=== PATIENT | female | born 1995 | race Asian ===

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

== ENCOUNTER 2017-07-27 00:22 | Emergency (ER) | payer OTHER ==
[2017-07-27] MEDS ORDERED: Pseudoephedrine TAB* 30 MG PO ONE (04:47)
--- NOTE | 2017-07-27 04:53 | ED ---
Alfreda Ferrara Julia, scribed for Andrea Pratt MD on 07/27/17 at 0100 . Substance Abuse/Use - HPI Summary HPI Summary: This patient is a 21 year old F BIBA to [facility] due to etoh intoxication from 6 shots of vodka around 20:00. Pt reports nasal congestion and eczema outbreak. She denies abdominal pain, nausea, trauma, or use of other medications/ substances. Patient repeats I just have to poop. Her LNMP was a couple days ago. - History Of Current Complaint Chief Complaint: EDSubstanceAbuse Stated Complaint: ETOH Time Seen by Provider: 07/27/17 00:37 Hx Obtained From: Patient Onset/Duration of Drug/ETOH Abuse: Hours Overdose Characteristics: Oral PMH/Surg Hx/FS Hx/Imm Hx Musculoskeletal History: Reports: Other Musculoskeletal History - eczema EENT History: Denies: Hx Deafness Infectious Disease History: No Infectious Disease History: Denies: Traveled Outside the [place] in Last 30 Days - Social History Alcohol Use: Here for intoxication Substance Use Type: Reports: None Smoking Status (MU): Never Smoked Tobacco Review of Systems Constitutional: Negative - trauma/injuries Negative: Abdominal Pain, Nausea All Other Systems Reviewed And Are Negative: Yes Physical Exam - Summary Physical Exam Summary: Appearance: Well appearing, no pain distress, smells of alcohol, calm Skin: warm, dry, reflects adequate perfusion, eczema bilateral wrists Head/face: normal Eyes: EOMI, TOMMY ENT: normal Neck: supple, non-tender Respiratory: CTA, breath sounds present Cardiovascular: RRR, pulses symmetrical Abdomen: non-tender, soft Bowel: present Musculoskeletal: normal, strength/ROM intact Neuro: normal, sensory motor intact, A&Ox3 Triage Information Reviewed: Yes Vital Signs On Initial Exam: Initial Vitals Temp Pulse Resp BP Pulse Ox 97.5 F 93 16 114/79 95 07/27/17 00:30 07/27/17 00:30 07/27/17 00:30 07/27/17 00:30 07/27/17 00:30 Vital Signs Reviewed: Yes Diagnostics - Vital Signs Vital Signs Temp Pulse Resp BP Pulse Ox 07/27/17 00:33 80 99 07/27/17 00:31 114/79 07/27/17 00:30 97.5 F 93 16 114/79 95 - Laboratory Lab Results: Lab Results 07/27/17 Range/Units 00:45 Serum Alcohol 288 H (<10) mg/dL Lab Statement: Any lab studies that have been ordered have been reviewed, and results considered in the medical decision making process. Course/Dx - Course Course Of Treatment: Patient BIBA due to etoh inoxication. Pt c/o nasal congestion. Alochol levels are 288. Waiting for pt to sober before dc. AAO. No evidence for injury. Friend of another pt with same. She will be signed out to Dr. Bustillo. D/C when functional capacity. - Diagnoses Provider Diagnoses: Nasal congestion, Alcohol intoxication Discharge - Discharge Plan Condition: Good Disposition: OTHER Discharge Disposition Comment: Patient will be signed out to Dr. Bustillo at end of shift change. The documentation as recorded by the Alfreda lubin Julia accurately reflects the service I personally performed and the decisions made by , Andrea Pratt MD.
[2017-07-27] MEDS ORDERED: Acetaminophen TAB* 325 MG PO ONE (08:21)
[2017-07-27 11:39] VITALS: BP 137/85
--- NOTE | 2017-07-27 18:02 | ED ---
Karla Ferrara Gabriel, scribed for Camilo Bustillo MD on 07/27/17 at 0751 . Progress - Progress Note Progress Note: This patient was signed out from Dr. Pratt, pending disposition, awaiting alcohol detox. The patients condition is stable and will be discharged to home with Dx of alcohol intoxication. Patient will be getting a ride home. The patient is ambulating and eating/drinking with no nausea or vomiting Patient is alert and orientedx3 and hemodynamically stable. Re-Evaluation - Re-Evaluation First Eval Re-Evaluation Time: 07:55 Change: Improved Comment: Patient is resting comfortably with normal vital signs. Course/Dx - Course Course Of Treatment: This patient was signed out from Dr. Pratt, pending disposition, awaiting alcohol detox. The patients condition is stable and will be discharged to home with Dx of alcohol intoxication. Patient will be getting a ride home. The patient is ambulating and eating/drinking with no nausea or vomiting. Patient is alert and orientedx3 and hemodynamically stable. - Diagnoses Provider Diagnoses: Alcohol intoxication The documentation as recorded by the Karla lubin Gabriel accurately reflects the service I personally performed and the decisions made by , Camilo Bustillo MD.
== END 2017-07-27 11:38 ==
LOC: ED 00:22 → MERGE 00:22 → ED 11:38
DX: F10.129 Alcohol abuse with intoxication, unspecified (principal); Y90.8 Blood alcohol level of 240 mg/100 ml or more; R09.81 Nasal congestion
CPT/HCPCS: 36415; 80320; 99282; A9270-GY; G0480